=== PATIENT | female | born 1980 | race Caucasian/White ===

== ENCOUNTER 2017-01-07 09:12 | Day surgery (SDC) | payer OTHER ==
[~2017-01-07 09:12] MED LIST: BUPIVACAINE/EPI 0.25% 30 ML SDV ONE; LIDO/EPI 1% **Not for Epidural 20 ML MDV ONE
[2017-01-07] MEDS ORDERED: LR 1,000 ML IV ONE (09:41)
[2017-01-07] MEDS ORDERED: LIDOCAINE 1% 5 ML SDV ID PRN (09:41)
[2017-01-07] MEDS ORDERED: SCOPOLAMINE HYDROBROMIDE 1.5 MG PATCH TD ONE (09:55)
[2017-01-07] MEDS ORDERED: MIDAZOLAM 2 MG/2 ML VIAL ONE (09:56)
[2017-01-07] MEDS ORDERED: TRIAMCINOLONE ACETONIDE 40 MG/ML VIAL ONE (10:02)
[2017-01-07] MEDS ORDERED: REMIFENTANIL HCL 1 MG VIAL ONE ×3 (10:03→14:28)
[2017-01-07] MEDS ORDERED: fentaNYL 250 MCG/5 ML INJ ONE (10:03)
[2017-01-07] MEDS ORDERED: PROPOFOL/EMULSION 500 MG/50 ML BOTTLE IV ONE ×3 (10:03→14:28)
[2017-01-07] MEDS ORDERED: HYDROCOD/APAP 7.5/325 IN 15ML UDCUP ONE (17:30)
[2017-01-07] MEDS ORDERED: HYDROCOD/APAP 7.5/325 IN 15ML UDCUP PO ONE (17:30)
--- NOTE | 2017-01-25 05:46 | GOP ---
[f rep st] OPERATIVE REPORT DATE OF OPERATION: 01/07/2017 SURGEON: Casa Love MD ANESTHESIA: General. PREOPERATIVE DIAGNOSIS: Nasal obstruction, acquired nasal deformity, bilateral chronic tonsillitis, left malar subcutaneous granuloma. POSTOPERATIVE DIAGNOSIS: Nasal obstruction, acquired nasal deformity, bilateral chronic tonsillitis, left malar subcutaneous granuloma. PROCEDURE PERFORMED: Septoplasty, inferior turbinate reduction, rhinoplasty, tonsillectomy, granuloma Kenalog injection. FINDINGS: Left subcutaneous diffuse 1 cm x 1.5 cm malar subcutaneous mass. Obstructive septal deviation, obstructive turbinate hypertrophy, internal nasal valve collapse, septal tip retraction with significant intranasal obstructive septal deviation. Dorsal hump. Nasal tip collapse with bifid tip. Cryptic pitted tonsils with tonsilliths encased within each. SPECIMENS: Tonsils. ESTIMATED BLOOD LOSS: 20 mL. INDICATIONS: Patient was seen in outpatient clinic and found to have a long history of nasal obstruction and nasal deformity secondary to multiple nasal fractures sustained when she was a teenager. Further, she was found to have chronic tonsillitis with recurring tonsilliths. Further, on the physical exam prior to that these procedures, a left malar subcutaneous granuloma was found and thought to be subsequent to prior cosmetic injection of facial fillers. Given her history and findings, she was determined to be an appropriate candidate for the above-stated procedures. The risks, benefits, and alternatives to the procedures were explained at length to the patient who stated she understood and wished to go forward with the procedures. DESCRIPTION OF PROCEDURE: Patient was brought to the operating room by Anesthesiology and placed on the operating table. Once the appropriate level of anesthesia was achieved, the nasion, intranasal vestibule, nasal septum, nasal dorsum via intranasal injection, and nasal columella were injected with 1 % lidocaine with 1:100,000 epinephrine. Afrin-soaked pledgets were placed in bilateral nasal cavities. After prepping the left cheek over the site of the granuloma, 0.4 ml of Kenalog 40 was injected into the central portion of the granuloma and at the circumference of the lesion. The patient was then prepped and draped in usual fashion. The operating table was turned 90 degrees and a shoulder roll was placed. A McIvor mouth gag was placed atraumatically in the oral cavity and used to retract the tongue. This was then suspended on a Harris stand. The right tonsil was excised first using Bovie electrocautery technique. There was minimal bleeding with this and hemostasis was achieved using Bovie electrocautery alone. Left tonsil was then excised, again using Bovie electrocautery technique. There was minimal bleeding with this and hemostasis was achieved using Bovie electrocautery alone. 0.25% bupivacaine with 1:100,000 epinephrine was injected into bilateral tonsillar fossae. The fossae were reinspected for bleeding. None was found. The patient was redraped and the shoulder roll was removed for the nasal portion of the procedure. The intranasal portion of the procedure was completed using a 0- degree rigid video endoscope. A left hemitransfixion incision was created somewhat posteriorly using a needle-tip Bovie electrocautery. The submucoperichondrial and submucoperiosteal dissection was then completed on this side using the Pershing elevator and suction [place]. Once this was completed , a vertical incision was made at the bony cartilaginous junction with a Shorty elevator. The contralateral mucosa was elevated off the bony septum with a suction [place]. A Harris scissor was then used to cut the bony septum superiorly. The remainder of the deviated bony septum was then removed with a Maru. The deviated portion of the cartilaginous septum was incised with a D knife, taking care to leave ample dorsal and columellar septal cartilage for support. The incised quadrangular cartilage was elevated off the contralateral mucosa using a Pershing elevator. It was delivered with the Maru and set aside for later possible graft use. With the flaps replaced, the septum appears straight under endoscopic visualization. The hemitransfixion incision was closed using two 4-0 chromic sutures. The right inferior turbinate. It was then reduced in a submucosal fashion using a 2 mm microdebrider. There was good soft tissue reduction with this and a single anterior insertion site was utilized. The inferior turbinate was then infractured and outfractured using a [place] elevator. There was good lateralization with this and good visualization through the nasopharynx following this. The left inferior turbinate was then reduced in a submucosal fashion using the 2 mm microdebrider. It had good soft tissue reduction visualized throughout the task with the endoscope utilizing a single anterior turbinate puncture site. The turbinate was then infractured and outfractured with good lateralization. Good visualization on this side through the nasopharynx from the nasal vestibule. Following marking the columella, a reverse gullwing incision was created within the columella using a 15 blade. A complete transfixion incision was completed with a 15 blade using nasal tip scissors to complete the transcolumellar dissection. Mild needle-tip Bovie electrocautery was used for hemostasis at the columella centrally. The tip scissors were then used to elevate nasal soft tissue in a sub perichondrial plane off the medial francesca, middle francesca, and lateral francesca of the lower lateral cartilages bilaterally. There was a significant separation of the left and right medial and middle francesca visualized. As well, there was a significant crease/fold in the left middle francesca. Dissection continued superiorly. The dorsal septum was found to be quite retracted and not in contact with the medial crura. A combination of [place] and nasal tip scissors were used to complete the subperichondrial dissection over the nasal bone over the bony dorsum and bilaterally over the nasal bones. An Afrin-soaked pledget was placed within this pocket and used to retract soft tissues superiorly. The nasal tips were then divided in order to dissect down to the tip and dorsum of the septum. The upper lateral cartilages were then from the septum using a 15 blade up to the nasal bones. The pledget was then removed and a combination of heavy and medium rasps were used to shape the nasal dorsum and remove the significant dorsal hump. This proceeded in multiple steps that included rasping, replacing the flap in order to inspect the profile of the nose. The cycle was completed multiple times until appropriate outcome was achieved. The septal cartilage identified earlier was then cut to create two 7 mm x 4 mm data deliverables manager grafts. These were able to be secured to the superior aspect of the dorsal septum, but as the septum had been forcibly retracted likely by prior trauma, there is no caudal suture site. Following this, the shorter cartilages were able to be sutured to each other in a secure fashion, and then onto another portion of fashioned set-aside cartilage that provided a septal tip graft. This was sutured in place using 5-0 PDS sutures. The creased portion of the left middle francesca/dome was trimmed with a 15 blade. 5-0 PDS suture was used to secure this as a solid dome without a crease. Bilateral tip sutures were then placed to elevate the medial crura. Dome sutures were then completed to align the domes and bringing them together in a symmetric fashion. Following this, the lower portions of the medial francesca were advanced anteriorly and sutured with the 5-0 PDS to the natural septal cartilage. These were revised as needed to achieve appropriate tip definition and tip rotation. The soft tissues were then replaced in anatomic position and a 5-0 chromic suture was used to bring subcutaneous tissues together. The gullwing incision was closed using three 6-0 nylon sutures. The bilateral transfixion incisions were closed then with 5-0 chromic sutures. Bacitracin-coated Barragan splints were placed bilaterally and sutured in place with a single 3-0 Prolene suture. The nasal tip was suspended with Steri-Strips and nasal dorsum was taped prior to an Aquaplast splint being placed. The patient tolerated the procedures well. Oral cavity was again inspected for bleeding at the tonsillar fossae. None was found. The patient was extubated in the operating room, and transferred in good condition to the post anesthesia care unit. COMPLICATIONS: None. /[id number]/MODL MTDD
== END 2017-01-07 18:15 | disposition home or self-care (01) ==
LOC: FSGY 09:12
PROVIDERS: ATTEND Otolaryngology
PROC: 09BM4ZZ Excision of Nasal Septum, Percutaneous Endoscopic Approach (ICD-10-PCS; principal; 2017-01-07 09:30)
PROC: 09BL4ZZ Excision of Nasal Turbinate, Percutaneous Endoscopic Approach (ICD-10-PCS; principal; 2017-01-07 09:30)
PROC: 0CTPXZZ Resection of Tonsils, External Approach (ICD-10-PCS; principal; 2017-01-07 09:30)
DX: J35.01 Chronic tonsillitis (principal); J34.89 Other specified disorders of nose and nasal sinuses; M95.0 Acquired deformity of nose
CPT/HCPCS: J2250; J2704; J3010; J3301

== ENCOUNTER → 2017-11-01 | Outpatient (CLI) | payer OTHER | LOC: FIMAGING 11:56 | PROVIDERS: ATTEND Obstetrics & Gynecology | DX: O09.521 Supervision of elderly multigravida, first trimester (principal); Z3A.12 12 weeks gestation of pregnancy ==

== ENCOUNTER → 2017-12-22 | Outpatient (CLI) | payer OTHER | LOC: FIMAGING 09:53 | PROVIDERS: ATTEND Obstetrics & Gynecology | DX: O09.522 Supervision of elderly multigravida, second trimester (principal); O44.42 Low lying placenta NOS or without hemorrhage, second trimester; I95.9 Hypotension, unspecified; Z3A.19 19 weeks gestation of pregnancy ==

== ENCOUNTER → 2018-01-05 | Outpatient (CLI) | payer OTHER | LOC: FIMAGING 14:21 | PROVIDERS: ATTEND Obstetrics & Gynecology | DX: O09.521 Supervision of elderly multigravida, first trimester (principal); I95.9 Hypotension, unspecified; Z3A.21 21 weeks gestation of pregnancy ==

== ENCOUNTER 2018-05-21 15:24 | Inpatient (IN) | payer OTHER ==
[2018-05-21] MEDS ORDERED: OLIVE OIL 118 ML BTL MISC PRN (15:58)
[2018-05-21] MEDS ORDERED: MISOPROSTOL 200 MCG TAB PR PRN (15:58)
[2018-05-21] MEDS ORDERED: OXYTOCIN/RINGERS LACTATE 1,000 ML IV PRN (15:58)
[2018-05-21] MEDS ORDERED: IBUPROFEN 600 MG TAB PO PRN (15:58)
[2018-05-21] MEDS ORDERED: LR 1,000 ML IV PRN (15:58)
[2018-05-21] MEDS ORDERED: TERBUTALINE SULFATE 1 MG/ML VIAL IV PRN (15:58)
[2018-05-21] MEDS ORDERED: LIDOCAINE 1% 300 MG/30 ML SDV SC PRN (15:58)
[2018-05-21] MEDS ORDERED: EPSOM SALT 454 GM TP PRN (15:58)
[2018-05-21] MEDS ORDERED: LIDOCAINE 1% 300 MG/30 ML SDV ONE (16:17)
[2018-05-21] MEDS ORDERED: TERBUTALINE SULFATE 1 MG/ML VIAL ONE (16:18)
[2018-05-21] MEDS ORDERED: OLIVE OIL 118 ML BTL ONE (16:18)
[2018-05-21] MEDS ORDERED: MISOPROSTOL 200 MCG TAB ONE (16:18)
[2018-05-21] MEDS ORDERED: AMMONIA AROMATIC 1 EACH AMP IH ONE (16:18)
[2018-05-21] MEDS ORDERED: OXYTOCIN 10 UNIT/ML VIAL ONE (16:18)
[2018-05-21 16:32] LABS: PLATELET COUNT 167 10^3/uL (150-400)
--- NOTE | 2018-05-21 19:12 | PDGENHP ---
History and Physical - Chief Complaint Early labor - History of Present Illness Heena is a 37 yo today at 41w0d by ALMA of 05/14/18 who presented today in early labor, dilated to 4cm. She's been having irregular, prodromal contractions for the past 48 hours, and has a h/o precipitous labor after SROM with her last - less than 30 minutes from SROM to delivery. She has IOL scheduled for tomorrow 0800 and would be interested in staying and delivering this evening. GBS negative. H/o four uncomplicated 's. This complicated by Heena having quite a few issues with symptomatic hypotension - was seen by [facility] and ultimately had a negative workup including stress echo, etc. Had low lying placenta, but this resolved. H/o oligohydramnios (idiopathic) in 3rd trimester of all prior pregnancies. H/ o laparotomy x 2 due to ovaries torsion a/w dermoids. Also AMA. She's had reassuring testing with NSTs and MARTITA's. Does have distant h/o LEEP. Labs: O pos Antibody neg RPR NR Rubella imune Hep B neg HIV neg TSH WNL 1st tri Parvo immune AFP normal Innatal neg Glucola 127 Laboratory Tests 07/18/17 10/20/17 10/20/17 12:44 13:30 13:30 Gestat Glucose Screen AST ALT TSH RPR NONREACTIVE Hep Bs Antigen NEGATIVE Hepatitis C Antibody NEGATIVE HIV 1&2 Antibody NEGATIVE Parvovirus B19 IgG Ab Parvovirus B19 IgM Ab Rubella IgG Antibody 160.00 Group B Strep DNA 10/20/17 12/01/17 12/13/17 13:30 13:10 14:39 Gestat Glucose Screen AST 26 ALT 35 TSH 1.210 RPR Hep Bs Antigen Hepatitis C Antibody HIV 1&2 Antibody Parvovirus B19 IgG Ab POSITIVE H Parvovirus B19 IgM Ab NEGATIVE Rubella IgG Antibody Group B Strep DNA 02/13/18 04/19/18 15:02 19:15 Gestat Glucose Screen 127 AST ALT TSH RPR Hep Bs Antigen Hepatitis C Antibody HIV 1&2 Antibody Parvovirus B19 IgG Ab Parvovirus B19 IgM Ab Rubella IgG Antibody Group B Strep DNA NEGATIVE History Information - Allergies/Home Medication List Allergies/Adverse Reactions: Penicillins Allergy (Verified 12/20/16 11:40) Rash Home Medications: NK [No Known Home Meds] 12/20/16 [Last Taken Unknown] I have personally reviewed and updated: family history, medical history, social history, surgical history Past Medical History: H/o chronic anemia, demoid cysts, ovarian torsion, symptomatic hypotension - Surgical History Additional surgical history: Laparotomy x 2 for ovarian cysts, x 4, h/o LEEP - Social History Smoking Status: Never smoked Alcohol Use: None Review of Systems Review of Systems: ROS: 10pt was reviewed & negative except for what was stated in HPI & below Physical Exam Physical Exam: NAD, appears uncomfortable with ctx's. Gravid belly, longitudinal lie. SCE on admission, 3-4cm, soft, vertex. FHR 130bpm, mod amy, accels present, no decels. Lab Data & Imaging Review 05/21/18 16:20 WBC 9.46 10^3/uL (3.80-9.50) 05/21/18 16:20 RBC 4.29 10^6/uL (4.18-5.33) 05/21/18 16:20 Hgb 14.2 g/dL (12.6-16.3) 05/21/18 16:20 Hct 40.0 % (38.0-47.0) 05/21/18 16:20 MCV 93.2 fL (81.5-99.8) 05/21/18 16:20 MCH 33.1 pg (27.9-34.1) 05/21/18 16:20 MCHC 35.5 g/dL (32.4-36.7) 05/21/18 16:20 RDW 12.8 % (11.5-15.2) 05/21/18 16:20 Plt Count 167 10^3/uL (150-400) 05/21/18 16:20 MPV 11.4 fL (8.7-11.7) 05/21/18 16:20 Neut % (Auto) 78.5 % (39.3-74.2) H 05/21/18 16:20 Lymph % (Auto) 12.4 % (15.0-45.0) L 05/21/18 16:20 Hamblen % (Auto) 8.1 % (4.5-13.0) 05/21/18 16:20 Eos % (Auto) 0.2 % (0.6-7.6) L 05/21/18 16:20 Baso % (Auto) 0.3 % (0.3-1.7) 05/21/18 16:20 Nucleat RBC Rel Count 0.0 % (0.0-0.2) 05/21/18 16:20 Absolute Neuts (auto) 7.42 10^3/uL (1.70-6.50) H 05/21/18 16:20 Absolute Lymphs (auto) 1.17 10^3/uL (1.00-3.00) 05/21/18 16:20 Absolute Monos (auto) 0.77 10^3/uL (0.30-0.80) 05/21/18 16:20 Absolute Eos (auto) 0.02 10^3/uL (0.03-0.40) L 05/21/18 16:20 Absolute Basos (auto) 0.03 10^3/uL (0.02-0.10) 05/21/18 16:20 Absolute Nucleated RBC 0.00 10^3/uL (0-0.01) 05/21/18 16:20 Immature Gran % 0.5 % (0.0-1.1) 05/21/18 16:20 Immature Gran # 0.05 10^3/uL (0.00-0.10) 05/21/18 16:20 Patient ABO/Rh O POSITIVE 05/21/18 16:20 Antibody Screen NEGATIVE 05/21/18 16:20 Assessment & Plan Assessment: 37 yo at 41w0d today, presnets in early/prodromal labor. H/o precipitous deliveries. Labor: Offered labor check and home if unchanged, or we did discuss that staying with the plan for IOL tonight vs leaving and coming back tomorrow AM is very reasonable and fine with me. RBA discussed. She'd be more comfortable staying and delivering tonight so as to not have an emergent trip to the hospital in the middle of the night, which I think is reasonable. Will start with AROM and augment with Pitocin if no response after few hrs following rupture. GBS neg, O pos, Rubella immune. Does not think she'd like an epidural. SLAVA
[2018-05-21] MEDS ORDERED: METHYLERGONOVINE MAL 0.2 MG/ML INJ ONE (22:14)
--- NOTE | 2018-05-21 22:27 | OBDEL ---
Info Type: Vaginal Presentation at Delivery: Vertex L&D Analgesia/Anesthesia Type: None GBS+: No Intrapartum Medications: Discontinued Medications Generic Name Dose Route Start Last Admin Trade Name María PRN Reason Stop Dose Admin Misoprostol 800 - 1,000 mcg 05/21/18 15:58 05/21/18 22:17 Cytotec SD 1,000 mcg ONCE PRN Administration Vaginal Atony/Bleeding Vaginal Delivery - Delivery Provider Delivery Physician/CNM: Piero Bell - Labor and Delivery Onset of Contractions Date: 05/21/18 Onset of Contractions Time: 17:15 Onset of Contractions Type: Induced Rupture of Membranes Date: 05/21/18 Rupture of Membranes Time: 17:15 Rupture of Membranes Type: Artificial Amniotic Fluid Color: Clear Dilation Complete Date: 05/21/18 Dilation Complete Time: 21:45 Placenta Delivery Date: 05/21/18 Placenta Delivery Time: 22:10 Total Hours of Labor: 4 Non-surgical Procedures: Amniotomy Laceration: 1st Degree (Hemostatic) Vaginal Sponge Count Correct: Yes Vaginal Needle Count Correct: Yes Vaginal Sweep Performed: Yes EBL: 500cc Delivery Events: Post Hemorrhage (Mild, atony, treated with IV Pit, rectal Cytotec, and IM methergine x 1) - Medications Labor Augmentation/Induction Methods Used: Other (Specify) (AROM) Labor Augmentation/Induction Indication: Post Dates Data ALMA: 05/14/18 Gestational Age: 41 week(s) and 0 day(s) Chin Delivery Date: 05/21/18 Delivery Time: 22:03 Sex of : Female Score (1 Min): 8 Score (5 Min): 9 ICD10 Worksheet Patient Problems: Problems Problem Status Onset Chronic anemia Acute PPH ( hemorrhage) Acute Symptomatic hypotension Acute Vaginal delivery Active - ICD10 Problem Qualifiers (1) Chronic anemia (2) Symptomatic hypotension (3) PPH ( hemorrhage) Qualifiers: hemorrhage type: third-stage Qualified Code(s): O72.0 - Third- stage hemorrhage
[2018-05-21] MEDS ORDERED: DOCUSATE SODIUM 100 MG CAP PO PRN (22:28)
[2018-05-21] MEDS ORDERED: SIMETHICONE 80 MG TAB CHEW PO PRN (22:28)
[2018-05-21] MEDS ORDERED: HYDROCORTISONE 0.5% CREAM TP PRN (22:28)
[2018-05-21] MEDS ORDERED: oxyCODONE IR 5 MG TAB PO PRN (22:28)
[2018-05-22] MEDS: ACETAMINOPHEN 325 MG TAB PO SCH ×4 (02:48→18:49)
[2018-05-22] MEDS: IBUPROFEN 600 MG TAB PO SCH ×3 (06:23→19:02)
[2018-05-22 08:19] VITALS: BP 104/67
--- NOTE | 2018-05-22 19:03 | OBPP ---
Progress Note Assessment/Plan: Assessment: ppd# 1 s/p breast feedng rh pos anemia Plan: routine post care iron discharge instructions 05/22/18 19:00 Subjective/ Course: 05/22/18 19:03 patient is doing great. has had intermittent episodes of increased bleeding but overall normal lochia. breast feeding is going well. denies headache and changes in vision. bedside ultrasound done. thin stripe noted with presumptive clot in the lower uterine segment. patient declines exam to remove. post precautions reviewed. Objective: 05/22/18 06:30 Patient ABO/Rh O POSITIVE 05/21/18 16:20 Temp Pulse Resp BP Pulse Ox 36.8 C 75 16 104/67 95 05/22/18 08:00 05/22/18 08:00 05/22/18 08:00 05/22/18 08:00 05/22/18 01:05 Uterine Position/Fundal Height: Umbilicus -3 Uterine Tone: Firm Physical Exam - Physical Exam Neck: non-tender, full range of motion, supple Respiratory: chest non-tender, lungs clear, normal breath sounds Cardiac/Chest: normal peripheral pulses, regular rate, rhythm Abdomen: normal bowel sounds, non-tender, other (fundus firm and non tender) Extremities: normal range of motion, non-tender, normal inspection, normal capillary refill Skin: normal color, warm/dry Neuro/Psych: no motor/sensory deficits, alert, normal mood/affect, oriented x 3
--- NOTE | 2018-05-22 19:13 | OBGCSDC ---
General Delivery Information - General Info : 5 Para: 5 Abortions: 0 Type: Vaginal L&D Analgesia/Anesthesia Type: None Admission Date: 05/21/18 Labs: Patient ABO/Rh O POSITIVE 05/21/18 16:20 Hct 30.4 % (38.0-47.0) L 05/22/18 06:30 - Hospital Course Antepartum: 05/22/18 19:12 uncomplicated . evaluation of symptomatic hypotension. negative genetic testing. : 05/22/18 19:03 patient is doing great. has had intermittent episodes of increased bleeding but overall normal lochia. breast feeding is going well. denies headache and changes in vision. bedside ultrasound done. thin stripe noted with presumptive clot in the lower uterine segment. patient declines exam to remove. post precautions reviewed. Vaginal - Delivery Provider Delivery Physician/CNM: Piero Bell - Diagnosis Labor: Induced Rupture of Membranes Type: Artificial Amniotic Fluid Color: Clear Laceration: 1st Degree (Hemostatic) Delivery Events: Post Hemorrhage (Mild, atony, treated with IV Pit, rectal Cytotec, and IM methergine x 1) - Procedures Non-surgical Procedures: Amniotomy - Delivery Non-surgical Procedures: Amniotomy EBL: 500cc [place] Data ALMA: 05/14/18 Gestational Age: 41 week(s) and 1 day(s) Chin Delivery Date: 05/21/18 Delivery Time: 22:03 Sex of Infant: Female [place] Weight (gm): 3656 g Score (1 Min): 8 Score (5 Min): 9 Discharge Information - Discharge Information Condition: Good Instruction/Follow Up: Four Weeks (post mood check ), Six Weeks (post visit)
== END 2018-05-22 20:30 | disposition home or self-care (01) | DRG 774 ==
LOC: FLD 15:24 → OBSVTOIN 15:24 → FOB 05-22 00:08
PROVIDERS: ADMIT Obstetrics & Gynecology; ATTEND Obstetrics & Gynecology
PROC: 3E033VJ Introduction of Other Hormone into Peripheral Vein, Percutaneous Approach (ICD-10-PCS; principal; 2018-05-21)
PROC: 10907ZC Drainage of Amniotic Fluid, Therapeutic from Products of Conception, Via Natural or Artificial Opening (ICD-10-PCS; principal; 2018-05-21)
PROC: 10E0XZZ Delivery of Products of Conception, External Approach (ICD-10-PCS; principal; 2018-05-21)
DX: O62.8 Other abnormalities of forces of labor (principal); O72.1 Other immediate postpartum hemorrhage; Z37.0 Single live birth; Z3A.41 41 weeks gestation of pregnancy; O70.0 First degree perineal laceration during delivery
CPT/HCPCS: J2210; J2590; J3105

== ENCOUNTER → 2018-06-10 | Outpatient (CLI) | payer OTHER | LOC: FIMAGING 09:02 | PROVIDERS: ATTEND Psychiatry & Neurology Neurology | DX: H02.409 Unspecified ptosis of unspecified eyelid (principal) ==